=== PATIENT | female | born 1965 | race Caucasian/White ===

== ENCOUNTER 2016-06-01 06:18 | Inpatient (IN) ==
[2016-06-01] MEDS ORDERED: ASPIRIN PO STA (06:31)
[2016-06-01] MEDS ORDERED: NITROGLYCERIN SL PRN (06:31)
--- NOTE | 2016-06-01 06:54 | PROVIDER DOCUMENTATION ---
HPI-Respiratory General - General Chief Complaint: Shortness of Breath Stated Complaint: SOB Time Seen by Provider: 06/01/16 06:22 Source: patient, family Allergies/Adverse Reactions: Patient Allergies Allergy/AdvReac Type Severity Reaction Status Date / Time Penicillins Allergy ANAPHYLAXIS Verified 06/01/16 06:31 Home Medications: No Home Medications 06/01/16 - History of Present Illness-Resp Nature of Presenting Problem: 50 y/o WF with no significant PMHx that presents to ED with a 4 day h/o SOB. Pt states initial evaluation at [place] ED on where she was diagnosed with Pleurisy. Pt reports left sided pain has been sharp, constant, non-radiating with a worsening intensity. SOB is aggravated with deep inspiration with no alleviating factors. Denies any chest pain, but reports a heaviness that began at onset. Denies any other symptoms. Quality of Pain: reports: aching, dull Severity in ED: reports: moderate Onset/Duration: reports: 4 days ago Timing: reports: getting worse Exposure: reports: unknown cause Cough Quality/Degree: reports: no cough Episode Frequency: other (recent diagnosis of pleurisy) Modifying Factors: improves with: nothing Associated Symptoms: reports: shortness of breath, other (left sided chest pain with deep inspiration) Similar Symptoms Previously?: No Recently seen or treated by another doctor?: Yes Review of Systems - Adult - REVIEW OF SYSTEMS - ADULT Constitutional: reports: no symptoms reported Eyes: reports: no symptoms reported Ears, Nose, Mouth & Throat: reports: no symptoms reported Cardiovascular: reports: no symptoms reported Respiratory: reports: shortness of breath. denies: cough, dyspnea on exertion Gastrointestinal: reports: no symptoms reported Genitourinary: reports: no symptoms reported Musculoskeletal: reports: no symptoms reported Integumentary: reports: no symptoms reported Neurological: reports: no symptoms reported Psychiatric: reports: no symptoms reported Endocrine: reports: no symptoms reported Hematologic/Lymphatic: reports: no symptoms reported Allergic/Immunologic: reports: no symptoms reported Past History - Adult - PAST MEDICAL HISTORY-ADULT Review of Records: reports: Old Records Reviewed, Nursing Assessment Review, Medications Reviewed Major Childhood Illnesses: reports: denies history Cardiovascular: reports: denies history Respiratory: reports: denies history Gastrointestinal: reports: denies history Obstetrical/Gynecological: reports: denies history Genitourinary: reports: denies history Musculoskeletal: reports: denies history Neurological: reports: denies history Psychiatric: reports: denies history Endocrine/Immune: reports: denies history - PRIOR SURGERIES/PROCEDURES Surgical/Procedure History: reports: hysterectomy, - IMMUNIZATION STATUS Childhood Immunizations: See Nurse Assessment Flu Vaccine: See Nurse Assessment - FAMILY HISTORY Family History: reviewed, not pertinent - SOCIAL HISTORY Smoking: cigarettes, less than 1 pack/day Substance Use: marijuana Alcohol Use Frequency: 3-4 times a week Number of drinks per typical drinking period:: 3-4 drinks Living Situation: family Physical Exam-General - PHYSICAL EXAM-ADULT Initial Vital Signs Reviewed: Yes - CONSTITUTIONAL General Appearance: appears well, alert, no apparent distress. negative: lethargic, slow to respond - EYES Eyes: PERRL/EOMI, pink conjunctivae. negative: pale conjunctivae, sclera injected, scleral icterus - HEAD, EARS, NOSE, MOUTH & THROAT HENMT: normocephalic/atraumatic, moist mucous membranes. negative: pharyngeal erythema, tonsillar exudate - NECK Neck: non-tender, full range of motion, supple. negative: C-spine tenderness - RESPIRATORY Respiratory: chest non-tender, lungs clear, normal breath sounds, pain on inspiration. negative: crackles, rales, rhonchi, stridor, wheezing, plerual rub - CARDIOVASCULAR Cardiovascular: normal peripheral pulses, regular rate, rhythm, no edema, no murmur. negative: extra beats, friction rub, irregularly irregular - CHEST (BREASTS) Chest/Breast: no tenderness. negative: mass/lump noted - GASTROINTESTINAL (ABDOMEN) Abdominal Exam: normal bowel sounds, non tender, soft. negative: guarding, rigid, rebound, tenderness - GENITOURINARY Female Genitalia/Pelvic Exam: deferred Rectal Exam: deferred - LYMPHATIC Lymphatic: no adenopathy - MUSCULOSKELETAL Back Exam: no CVA tenderness, no vertebral tenderness. negative: muscle spasm, swelling, vertebral tenderness Extremity: normal range of motion, non-tender, normal gait. negative: deformity , erythema - SKIN Integumentary: normal color, normal turgor, warm/dry. 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 negative: anxious, tearful Progress - PLAN OF CARE/RESULTS Progress/Plan/Lab Results: Laboratory Tests 06/01/16 06/01/16 06/01/16 06:43 06:43 06:43 WBC 12.02 H RBC 4.18 L Hgb 13.6 Hct 39.0 MCV 93.3 MCH 32.5 H MCHC 34.9 RDW Std Deviation 12.5 Plt Count 263 MPV 9.8 Immature Gran % (Auto) 0.2 Neut % (Auto) 82.9 H Lymph % (Auto) 9.7 L [place] % (Auto) 6.6 Eos % (Auto) 0.5 Baso % (Auto) 0.1 Immature Gran # (Auto) 0.03 Neut # 9.97 H Lymph # 1.16 L [place] # 0.79 H Eos # 0.06 Baso # 0.01 PT INR PTT (Actin FS) D-Dimer 1.02 H Sodium 137 Potassium 4.1 Chloride 101 Carbon Dioxide 22 L Anion Gap 14 BUN 10 Creatinine 0.6 Estimated GFR/1.73 m2 > 60 BUN/Creatinine Ratio 17 Glucose 108 H Calculated Osmolality 273 Calcium 9.2 Magnesium 2.0 Total Bilirubin 0.49 AST 11 ALT 9 L Alkaline Phosphatase 79 Creatine Kinase 32 Troponin T Gcm-R-Pzltkjfthhn Pept Total Protein 6.8 Albumin 3.7 Globulin 3.1 Albumin/Globulin Ratio 1.2 06/01/16 06/01/16 06/01/16 06:43 06:43 06:43 WBC RBC Hgb Hct MCV MCH MCHC RDW Std Deviation Plt Count MPV Immature Gran % (Auto) Neut % (Auto) Lymph % (Auto) [place] % (Auto) Eos % (Auto) Baso % (Auto) Immature Gran # (Auto) Neut # Lymph # [place] # Eos # Baso # PT 10.2 INR 0.96 PTT (Actin FS) 29.7 D-Dimer Sodium Potassium Chloride Carbon Dioxide Anion Gap BUN Creatinine Estimated GFR/1.73 m2 BUN/Creatinine Ratio Glucose Calculated Osmolality Calcium Magnesium Total Bilirubin AST ALT Alkaline Phosphatase Creatine Kinase Troponin T < 0.010 Nhm-O-Rgyiolurwuo Pept 316 H Total Protein Albumin Globulin Albumin/Globulin Ratio Orders Category Date Time Status Cardiac Monitoring DIRECTED Care 06/01/16 06:32 Active Saline Loc NOW Care 06/01/16 06:32 Active CHEST-2 VIEWS [RAD] Stat Exams 06/01/16 06:32 Draft CBC WITH ELECTRONIC DIFF [HEME] Stat Lab 06/01/16 06:43 Completed CK PROFILE [SP CHEM] Stat Lab 06/01/16 06:43 Completed COMPREHENSIVE METABOLIC PANEL [CHEM] Stat Lab 06/01/16 06:43 Completed D-DIMER [CHEM] Stat Lab 06/01/16 06:43 Completed MAGNESIUM [CHEM] Stat Lab 06/01/16 06:43 Completed PRO B-NATRIURETIC PEPTIDE Stat Lab 06/01/16 06:43 Completed PROTIME WITH INR [COAG] Stat Lab 06/01/16 06:43 Completed PTT [COAG] Stat Lab 06/01/16 06:43 Completed TROPONIN T Stat Lab 06/01/16 06:43 Completed Aspirin Med 06/01/16 06:31 Discontinued 325 mg PO STAT STA Ketorolac [Toradol] Med 06/01/16 06:58 Discontinued 30 mg IV NOW ONE Nitroglycerin Sl [Nitroglycerin] Med 06/01/16 06:31 Active 0.4 mg SL Q5M PRN PRN EKG [EKG] Stat Ther 06/01/16 06:32 Draft Vital Signs - 24 hr 06/01/16 06:23 Temperature 97.8 F Pulse Rate 75 Respiratory 19 Rate Blood Pressure 151/80 O2 Sat by Pulse 97 Oximetry - EKG 1 Time of EKG reading by physician:: 06:51 EKG Read and Signed by:: Monserrat Aldrich Jr EKG Interpretation (*Must complete 3 of following elements*): Normal Rate: 67 Rhythm: sinus [place]: normal QRS: normal [place] Interval: normal ST Wave: normal - XRAY 1 XRAY Study: Chest Impression: Abnormal XRAY Interpretation: LLL inflitrate suggestive of pneumonia - CT/MRI 1 CT Study: Angiogram Impression: Abnormal (Left sided PE with possible pulmonary infarct of the lingula and Left Lower Lobe at the base. Bibasilar atelectasis. Noncalcified granuloma.) - CONSULTS/PCP/HOSPITALIST Notification #1 *Consult/PCP/Hospitalist*: Dr. Rosa Time Discussed: 09:45 Consult Disposition: Will see in ED, Admit Departure - Departure Time of Disposition Order: 09:44 DIAGNOSIS: Bandemia, Pulmonary embolism and infarction Pneumonia Qualifiers: Pneumonia type: due to unspecified organism Laterality: left Lung location: lower lobe of lung Qualified Code(s): J18.1 - Lobar pneumonia, unspecified organism Dyspnea Qualifiers: Dyspnea type: shortness of breath Qualified Code(s): R06.02 - Shortness of breath Disposition: ADMITTED INPATIENT 09 Certified Medical Emergency: Emergent Condition: Fair Referrals: None,PCP [Primary Care Provider] -
[2016-06-01] MEDS ORDERED: TORADOL IV ONE (06:58)
[2016-06-01 07:05] LABS: MANUAL DIFF NEEDED? NO
[2016-06-01 07:07] LABS: BASO% 0.1 % (0.0-0.8); EOS# 0.06 X1000 (0.0-0.7); EOS% 0.5 % (0.0-10.0); HEMOGLOBIN 13.6 g/dL (12.0-16.0); IMM GRAN# 0.03 X1000 (0.0-0.04); IMM GRAN% 0.2 % (0.0-0.5); LYMPH# 1.16 X1000 (1.2-3.4); LYMPH% 9.7 % (20.5-51.1); MCH 32.5 PG (27-31); MCHC 34.9 g/dL (33-37); MCV 93.3 FL (81-99); MONO# 0.79 X1000 (0.11-0.59); MONO% 6.6 % (1.7-9.3); MPV 9.8 FL (7.4-10.4); NEUT% 82.9 % (42.2-75.2); PLT 263 X1000 (130-400); RBC 4.18 XMIL (4.2-5.4)
[2016-06-01 07:20] LABS: INR 0.96; PROTIME 10.2 Seconds (9.2-11.7); PTT 29.7 Seconds (22.0-36.0)
[2016-06-01 07:26] LABS: AGAP 14; ALBUMIN 3.7 g/dL (3.5-5.0); ALKALINE PHOSPHATASE 79 U/L (32-104); BUN 10 mg/dL (8-22); CALCIUM 9.2 mg/dL (8.8-10.2); CHLORIDE 101 mmol/L (98-107); CK PROFILE 32 U/L (24-173); COSMO 273; GOT 11 U/L (10-30); GPT 9 U/L (10-36); POTASSIUM 4.1 mmol/L (3.5-5.1); SODIUM 137 mmol/L (136-145); TCO2 22 mmol/L (25-35); TOTAL BILIRUBIN 0.49 mg/dL (0.20-1.00); TOTAL PROTEIN 6.8 g/dL (6.3-8.3)
--- NOTE | 2016-06-01 07:28 | EKG Report ---
Test Performed on : 06/01/2016 06:51:21 AM Test Reason : Chest Pain Blood Pressure : / mmHG Vent. Rate : 067 BPM Atrial Rate : 067 BPM P-R Int : 130 ms QRS Dur : 088 ms QT Int : 370 ms P-R-T Axes : 039 055 028 degrees QTc Int : 390 ms Normal sinus rhythm. Normal ECG No previous ECGs available Unconfirmed Result
--- NOTE | 2016-06-01 07:35 | Diag Imaging Result Document ---
PROCEDURE NAME: CHEST-2 VIEWS - 06/01/2016 CHEST X-RAY, 2 VIEWS: COMPARISON: None. FINDINGS: There is significant left lower lobe infiltrate. There is also some infiltrate or atelectasis in the right lateral costophrenic angle. Heart size is normal. No pneumothorax or pleural effusion. IMPRESSION: Substantial left lower lobe infiltrate suggesting pneumonia.
[2016-06-01] MEDS ORDERED: LEVAQUIN 750 MG/D5W 150 ML IV ONE (07:42)
[2016-06-01] MEDS ORDERED: HEPARIN IV ONE (09:06)
--- NOTE | 2016-06-01 09:20 | Diag Imaging Result Document ---
PROCEDURE NAME: ANGIOGRAM/PULMONARY ARTERIES - 06/01/2016 CTA CHEST: COMPARISON: None available. FINDINGS: There is a prominent filling defect seen in 2nd and higher order branches of the left pulmonary artery that lead to the lingula and the left lower lobe. This is consistent with pulmonary embolism. There is dense consolidation in the lingula and at the peripheral left lung base. This is worrisome for pulmonary infarct. There is also subsegmental atelectasis at the left lung base and a small pleural fluid collection. I suppose concurrent pneumonia is possible. There is minimal subsegmental atelectasis at the right lung base as well. No other pulmonary emboli can be identified. There is no evidence of aortic dissection or aneurysm. There are few calcified mediastinal lymph nodes suggesting prior granulomatous disease. There is a 6.4 mm noncalcified nodule at the superior aspect of the right lower lobe posteriorly abutting the pleura. This certainly may represent a noncalcified granuloma. A few other tiny pleural-based nodules are identified at the upper lung zones. If there is clinical concern for this, a followup CT based on Fleischner Society criteria may be helpful. IMPRESSION: 1. Left side pulmonary embolism with findings concerning for pulmonary infarct involving the lingula as well as the left lower lobe at the base. 2. Bibasilar atelectasis. 3. A few small pulmonary nodules that are not calcified as described, statistically most likely representing noncalcified granulomata. If clinically warranted, followup based on Fleischner Society criteria. 4. This critical result was reported to Dr. Aldrich in the Emergency Department via telephone at 0856 hours.
[2016-06-01] MEDS ORDERED: LOVENOX SUBQ ONE (09:59)
[2016-06-01] MEDS ORDERED: LOVENOX ONE (10:16)
[2016-06-01] MEDS ORDERED: TYLENOL PO PRN (11:38)
[2016-06-01] MEDS ORDERED: ZOFRAN IV PRN (11:38)
--- NOTE | 2016-06-01 11:38 | HISTORY AND PHYSICAL ---
PRIMARY CARE PROVIDER: No one. CHIEF COMPLAINT: Shortness of breath. HISTORY OF PRESENT ILLNESS: Ms. Muriel Sepulveda is a 50-year-old female with no significant past medical history who, apparently, on Tuesday morning, , 05/29/2016, started having symptoms of shortness of breath. It progressed to later on that evening as pain in her left breast and left chest area. She presented to [place] that evening and was diagnosed with pleurisy after a chest x-ray was performed. She was sent home with naproxen and Tylenol 3. Over the last 2 days, she states that she did take the medication but it just did not improve her symptoms. Her symptoms included progressive chest tightness that felt like a flu or a cold and the pain continued in her left breast and left chest. Shortness of breath with pain was worse with inspiration. She had increasing fatigue and then yesterday started having some dizziness, nausea, diaphoresis, flushed hot feeling but did not pass out. This morning she got up, got ready for work and felt so bad that she came here for medical assistance. She does have clear phlegm that is blood tinged in color, which she stated also started yesterday. She denies vomiting or diarrhea, denies fever or chills, denies blood in her urine or stool. Workup revealed chest x-ray that showed a substantial left lower lobe infiltrate that was suggestive of pneumonia. Her white blood cell count was 12,000. She was afebrile. D-dimer was elevated at 1 and they performed a pulmonary arteriogram, which showed a left-sided pulmonary embolism with findings concerning for pulmonary infarct involving the lingula as well as the left lower lobe at the base. She had bilateral bibasilar atelectasis, a few small pulmonary nodules. In the ER received Toradol 30 mg IV x1 for pain, Levaquin 750 for possible pneumonia, heparin 5000 units IV x1, and aspirin 325 mg p.o. x1. We will admit her to CICU and start her on weight based 1 mg/kg of Lovenox twice daily and perform a hypercoagulable workup as she states that her mother had a clotting disorder but was not confirmed with the diagnosis. PAST MEDICAL HISTORY: None. PAST SURGICAL HISTORY: section x2. Partial hysterectomy and tubal ligation. SOCIAL HISTORY: Half pack per day smoker. Six beers every 2 weeks. Marijuana, last being on [employer] 's [place]idya, the same day as her symptoms. She and her smoke about once a week. 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 She is . Apparently, her recently had an acute MN and is currently wearing a Life Vest and he is at the bedside with her. She has children and grandchildren. FAMILY HISTORY: Mother had coronary artery disease, blood disease that caused clots, she states that these clots were in her legs, and diabetes. REVIEW OF SYSTEMS: Fourteen point review of systems were complete and all were negative except for those mentioned in the above HPI. ALLERGIES: Penicillin. HOME MEDICATIONS: None. LABORATORY DATA: White blood cells 12,000. Hemoglobin 13. Hematocrit 39. Platelet count 263,000. PT 10. INR 0.96. PTT 29.7. D-dimer 1.02. Sodium 137. Potassium 4.1. BUN 10. Creatinine 0.6. GFR greater than 60. Glucose 108. Calcium 9.2. Magnesium 2.0. Total bilirubin 0.49. AST 11. ALT 9. CK 32. Troponins less than 0.01. ProBNP 316. Total protein 6.8. Lactate 0.8. IMAGIN. Chest x-ray: Substantial left lower lobe infiltrate suggesting pneumonia. Heart size is normal. No pneumothorax or pleural effusion. There is also some atelectasis or infiltrate in the right lateral costophrenic angle. 2. Pulmonary arteriogram revealed left-sided pulmonary embolism with findings concerning for pulmonary infarct involving the lingula as well as the left lower lobe at the base, bibasilar atelectasis, and a few small pulmonary nodules that are noncalcified, likely representing noncalcified granulomata. 3. EKG normal sinus rhythm. Rate is 67. PHYSICAL EXAMINATION: VITAL SIGNS: Temperature is 97.8 degrees. Heart rate 78. Respiratory rate 16. Blood pressure 131/77. O2 saturation 96% on nasal cannula. She is 5 feet 2 inches tall, 140 pounds. BMI is 25.6. GENERAL: Ms. Sepulveda is a pleasant 50-year-old female. She is in no acute distress. There is some mild discomfort with talking and carrying on conversation and some mild shortness of breath with that. HEENT: Atraumatic, normocephalic. Pupils equal, round, reactive to light. Extraocular movements are intact. NECK: No carotid bruits or JVD noted. CARDIOVASCULAR: S1, S2. Regular rate and rhythm. No rubs, gallops or murmurs. PULMONARY: Clear to auscultate with bilateral breath sounds, decreased in the left base. No accessory muscle use with just trace work of breathing, currently on 2 L nasal cannula. GI: Soft, nontender, nondistended. Positive bowel sounds x4. NEUROLOGIC: A and O x4. Moves all extremities equally. EXTREMITIES: No edema noted. +2 dorsalis and radial pulses. No swelling in the lower extremities or redness noted. No signs of DVT at this time. SKIN: Warm, dry, intact. ASSESSMENT AND PLAN: 1. Pulmonary thromboemboli of the left lower lobe with findings concerning for pulmonary infarct involving the lingula as well as the left lower lobe and the base. Lactic acid is normal at this time. Will do Lovenox 1 mg/kg q.12 hours. She gives a family history of her mother having clotting disorder so will do a hypercoagulable workup. She has never had a history of clots. We will repeat a chest x-ray in the morning. Will order lower extremity Dopplers and an echo to evaluate for other clots. 2. Questionable left lower lobe pneumonia versus atelectasis. Could be that the chest x-ray is showing more of the clot causing the infiltrates on the left lower lobe. Her white count is 12,000 but this could be inflammatory. We will go ahead and continue with Levaquin for now. She does have a history of smoking. 3. Left pleuritic pain. [place] p.r.n. Tylenol p.r.n. Will add low-dose Dilaudid. She did receive Toradol in the ER. May consider adding a couple of schedule doses. 4. Tobacco abuse. Cessation was discussed. Will not use a nicotine patch for nicotine withdrawal given high risk of clots with nicotine patches. 5. Gastrointestinal prophylaxis. Proton pump inhibitor. 6. Deep venous thrombosis prophylaxis. She will be receiving weight-based dosing of Lovenox. Dictated by ALBERTA Douglas for Clark Rosa MD
[2016-06-01] MEDS: DUONEB (A & A) INH PRN (12:30)
[2016-06-01] MEDS ORDERED: TORADOL IV SCH (13:00)
[2016-06-01] MEDS: NS 1,000 ML IV SCH (15:03)
[2016-06-01 18:31] LABS: URINE CULTURE NEEDED? NO; URINE MICRO REVIEW NEEDED? NO; URINE SOURCE CLEAN CATCH
[2016-06-01 18:44] LABS: BILIRUBIN URINE NEGATIVE (NEGATIVE); BLOOD URINE TRACE (NEGATIVE); COLOR YELLOW; GLUCOSE URINE NEGATIVE (NEGATIVE); LEUKOCYTES URINE NEGATIVE (NEGATIVE); NITRITE URINE NEGATIVE (NEGATIVE); PROTEIN URINE TRACE mg/dL (NEGATIVE); TURBIDITY URINE CLEAR (CLEAR); UROBILINOGEN URINE NORMAL (NORMAL)
[2016-06-01 18:46] LABS: UR EPITHELIAL CELLS <10 /HPF (<10); URINE BACTERIA NEGATIVE /HPF; URINE RBC <10 /HPF (<10); URINE WBC <10 /HPF (<10)
[2016-06-01 18:50] LABS: SP GRAVITY URINE > 1.030
[2016-06-01] MEDS: PRILOSEC PO SCH (19:35)
[2016-06-01] MEDS: LOVENOX SUBQ SCH (20:53)
[2016-06-01] MEDS: NORCO-7.5 PO PRN (20:57)
[2016-06-01] MEDS ORDERED: LOVENOX 1 MG/KG SUBQ SCH (22:00)
[2016-06-02] MEDS: NS 1,000 ML IV SCH ×3 (04:08→20:19)
[2016-06-02 04:45] LABS: MANUAL DIFF NEEDED? NO
[2016-06-02 04:49] LABS: BASO% 0.1 % (0.0-0.8); EOS% 2.3 % (0.0-10.0); HEMATOCRIT 35.2 % (37.0-47.0); HEMOGLOBIN 12.1 g/dL (12.0-16.0); LYMPH# 2.43 X1000 (1.2-3.4); LYMPH% 27.6 % (20.5-51.1); MCH 32.6 PG (27-31); MCHC 34.4 g/dL (33-37); MCV 94.9 FL (81-99); MPV 9.7 FL (7.4-10.4); PLT 257 X1000 (130-400); RBC 3.71 XMIL (4.2-5.4)
[2016-06-02] MEDS: NORCO-7.5 PO PRN (05:05)
[2016-06-02 05:13] LABS: AGAP 12; ALBUMIN 3.2 g/dL (3.5-5.0); ALKALINE PHOSPHATASE 80 U/L (32-104); BUN 9 mg/dL (8-22); CALCIUM 8.8 mg/dL (8.8-10.2); CHLORIDE 103 mmol/L (98-107); COSMO 273; GOT 15 U/L (10-30); GPT 11 U/L (10-36); INR 1.01; IRON SATURATION 13 %; POTASSIUM 4.1 mmol/L (3.5-5.1); PROTIME 10.7 Seconds (9.2-11.7); PTT 33.6 Seconds (22.0-36.0); SODIUM 138 mmol/L (136-145); TCO2 23 mmol/L (25-35); TIBC 206 ug/dL; TOTAL BILIRUBIN 0.57 mg/dL (0.20-1.00); TOTAL IRON 26 ug/dL (49-151); UNBOUND IRON 180 ug/dL (112-346)
[2016-06-02 05:29] LABS: FREE T4 1.32 ng/dL (0.93-1.70)
[2016-06-02 06:15] LABS: HEMOGLOBIN A1C 5.3 % (4.8-6.0)
[2016-06-02] MEDS: DILAUDID IV PRN ×5 (06:25→23:52)
[2016-06-02] MEDS ORDERED: VANCOMYCIN 1 GM/NS 250 ML IV ONE (06:37)
--- NOTE | 2016-06-02 07:11 | EKG Report ---
Test Performed on : 06/02/2016 06:23:01 AM Test Reason : chest pain Blood Pressure : / mmHG Vent. Rate : 058 BPM Atrial Rate : 058 BPM P-R Int : 150 ms QRS Dur : 086 ms QT Int : 404 ms P-R-T Axes : 061 054 039 degrees QTc Int : 396 ms Sinus bradycardia. Otherwise normal ECG When compared with ECG of 01-JUN-2016 06:51, Nonspecific ST abnormality improved in III Confirmed by Jasiel Rivero DO ([id number]) on 06/02/2016 6:50:09 PM
--- NOTE | 2016-06-02 08:04 | Diag Imaging Result Document ---
PROCEDURE NAME: CHEST-PORTABLE - 06/02/2016 SINGLE FRONTAL RADIOGRAPH OF THE CHEST: COMPARISON: 06/01/2016. FINDINGS: Inspiration is suboptimal. Infiltrate at the left lung base is approximately stable as compared to the previous study given differences in inspiration. Right costophrenic angle opacity is slightly more prominent. There are probably tiny bilateral effusions. No other new consolidation is identified. Cardiac silhouette is stable. IMPRESSION: Slight increase in the focal opacity at the right costophrenic angle but approximate stability of the infiltrate at the left lung base given differences in inspiration.
[2016-06-02] MEDS: DUONEB (A & A) INH PRN ×3 (08:28→15:45)
[2016-06-02] MEDS: LOVENOX SUBQ SCH ×2 (10:09→20:14)
[2016-06-02] MEDS: LEVAQUIN 750 MG/D5W 150 ML IV SCH (10:09)
[2016-06-02] MEDS: PRILOSEC PO SCH ×2 (10:09→18:12)
--- NOTE | 2016-06-02 13:20 | PROGRESS NOTE ---
DATE: 06/02/2016 SUBJECTIVE: This patient states that she is feeling better. She is still complaining of mild to moderate left chest pain. She denies nausea, vomiting, diarrhea, constipation. No fever, no chills. She states that the shortness of breath is getting better. She is on fluids, and she is on a diet. If she tolerates p.o. I will stop the fluids. OBJECTIVE: Vital Signs: Temperature 97.7 degrees, pulse 73, respiratory rate 20, blood pressure 132/73, O2 saturation 97 on home 2 L of nasal cannula. HEENT: Head normocephalic. No trauma. PERRLA. Neck: Supple. No JVD. No masses. Cardiovascular: RRR. No murmurs. No gallops. No rubs. Chest: Clear to auscultation. Left lower lung rales. Abdomen: Soft, nontender, nondistended. No hepatosplenomegaly. Extremities: No edema. No clubbing. No cyanosis. Neurological: The patient is alert and oriented x3. No focal neurological deficits. LABORATORY: WBC 8.7, hemoglobin 12.1, hematocrit 35.2, platelets 257,000. Sodium 138, potassium 4.1, chloride 103, bicarbonate 23, BUN 9, creatinine 0.8, glucose 82. Hemoglobin A1c is 5.3. Albumin 3.2. Vitamin B12 146 which is low. ASSESSMENT AND PLAN: 1. Pulmonary thromboemboli of the left lower lung with findings concerning for pulmonary infarct involving the lingula as well. This patient is feeling much better. She is on Lovenox 1 mg/kg q.12 hours. We will continue with the same medication. Apparently her mom also had a venous thromboembolism. She never had history of blood clots. Pending echocardiogram and a lower extremity ultrasound to rule out another clot. 2. Possible left lower pneumonia versus atelectasis. I will continue with the same medications. She is on levofloxacin. 3. Left pleuritic pain. Continue with pain medication, she is getting better. 4. Tobacco abuse. I will continue counseling this patient against smoking, and she seems to understand the risk of having new blood clots and cardiovascular events secondary to cigarette smoking. CRITICAL CARE TIME: 35 minutes.
--- NOTE | 2016-06-02 14:02 | ECHO REPORT ---
ORDER DATE: 06/02/2016 PROCEDURE: Echocardiogram. ECHOCARDIOGRAPHIC MEASUREMENTS: 1. Interventricular septum 0.8. 2. Left ventricular posterior wall 0.8. 3. Diastolic diameter 4.1. 4. Left atrium 4.2. 5. Aorta 3. INTERPRETATION: 1. Normal left ventricular cavity size. Estimated ejection fraction of 60% to 65%. 2. Aortic valve leaflets are trileaflet. 3. Mitral valve was normal. 4. Tricuspid valve was normal. 5. Pulmonic valve was normal. 6. Peak velocity across the aortic valve less than 2 m/sec. There is no aortic stenosis or regurgitation. 7. There is trivial mitral regurgitation. 8. Trace tricuspid regurgitation. Peak velocity across the tricuspid valve was 2.3 m/sec. 9. There is no pericardial effusion or obvious intracardiac mass.
[2016-06-02] MEDS ORDERED: MORPHINE IV ONE (17:45)
[2016-06-03] MEDS: DILAUDID IV PRN ×6 (03:19→19:27)
[2016-06-03] MEDS: NS 1,000 ML IV SCH ×4 (03:26→23:36)
[2016-06-03 04:56] LABS: MANUAL DIFF NEEDED? NO
[2016-06-03 05:01] LABS: BASO% 0.1 % (0.0-0.8); EOS# 0.25 X1000 (0.0-0.7); EOS% 2.9 % (0.0-10.0); HEMATOCRIT 32.7 % (37.0-47.0); IMM GRAN# 0.02 X1000 (0.0-0.04); IMM GRAN% 0.2 % (0.0-0.5); LYMPH# 1.96 X1000 (1.2-3.4); LYMPH% 22.5 % (20.5-51.1); MCH 32.2 PG (27-31); MCHC 33.6 g/dL (33-37); MCV 95.6 FL (81-99); MONO% 10.3 % (1.7-9.3); MPV 9.8 FL (7.4-10.4); PLT 264 X1000 (130-400); RBC 3.42 XMIL (4.2-5.4)
[2016-06-03 05:19] LABS: AGAP 10; BUN 7 mg/dL (8-22); CALCIUM 8.3 mg/dL (8.8-10.2); CHLORIDE 99 mmol/L (98-107); COSMO 265; POTASSIUM 4.4 mmol/L (3.5-5.1); SODIUM 134 mmol/L (136-145); TCO2 25 mmol/L (25-35)
--- NOTE | 2016-06-03 05:25 | EKG Report ---
Test Performed on : 06/02/2016 6:11:32 PM Test Reason : chest pain Blood Pressure : / mmHG Vent. Rate : 084 BPM Atrial Rate : 084 BPM P-R Int : 134 ms QRS Dur : 070 ms QT Int : 354 ms P-R-T Axes : 058 055 043 degrees QTc Int : 418 ms Normal sinus rhythm. Normal ECG When compared with ECG of 02-JUN-2016 06:23, (Unconfirmed) Nonspecific T wave abnormality III Nonspecific T wave abnormality aVL Nonspecific ST and T wave abnormality V1 No significant change was found Confirmed by Jasiel Rivero DO ([id number]) on 06/06/2016 3:38:03 PM
[2016-06-03] MEDS: PRILOSEC PO SCH ×2 (06:29→18:32)
[2016-06-03] MEDS: DUONEB (A & A) INH PRN ×3 (07:31→15:20)
[2016-06-03] MEDS: LEVAQUIN 750 MG/D5W 150 ML IV SCH ×2 (07:54→08:16)
[2016-06-03] MEDS: LOVENOX SUBQ SCH ×3 (07:55→20:27)
--- NOTE | 2016-06-03 07:56 | EKG Report ---
Test Performed on : 06/03/2016 07:22:58 AM Test Reason : Chest Pain Blood Pressure : / mmHG Vent. Rate : 074 BPM Atrial Rate : 074 BPM P-R Int : 134 ms QRS Dur : 076 ms QT Int : 362 ms P-R-T Axes : 040 059 041 degrees QTc Int : 401 ms Normal sinus rhythm. Normal ECG When compared with ECG of 02-JUN-2016 18:11, (Unconfirmed) No significant change was found Confirmed by Jasiel Rivero DO ([id number]) on 06/06/2016 3:49:57 PM
--- NOTE | 2016-06-03 09:49 | Diag Imaging Result Document ---
PROCEDURE NAME: CHEST-PORTABLE - 06/03/2016 PORTABLE CHEST X-RAY: COMPARISON: 06/02/2016. FINDINGS: Stable multilobar infiltrates in the left lung base. Stable small infiltrate in the right base as well. Heart size remains top normal. IMPRESSION: No change from prior.
[2016-06-03 10:03] LABS: INR 1.03; PROTIME 10.9 Seconds (9.2-11.7)
--- NOTE | 2016-06-03 10:09 | PROGRESS NOTE ---
DATE: 06/03/2016 SUBJECTIVE: This patient is complaining about left chest pain, radiated to the back, sharp, since yesterday night. EKG and cardiac enzymes are normal. Also this patient is complaining of hemoptysis. This patient is on anticoagulation and we held the morning dose for now and will get a pulmonary department evaluation on this patient to decide whether or not this patient needs to continue on anticoagulation or any procedure. OBJECTIVE: Vital Signs: Temperature 98 degrees, pulse 76, respiratory rate 31, blood pressure 132/75, oxygen saturation 97% on 2 L of nasal cannula. HEENT: Head normocephalic. No trauma. PERRLA. Neck: Supple. No JVD. No masses. Cardiovascular: RRR. No murmurs. No gallops. No rubs. Chest: Clear to auscultation. Left lower lung rales. Abdomen: Soft, nontender, nondistended. No hepatosplenomegaly. Extremities: No edema. No clubbing. No cyanosis. Neurological: The patient is alert and oriented x3. No focal neurological deficits. LABORATORY: WBC 8.7, hemoglobin 11, hematocrit 32.7, platelets 264,000. Sodium 134, potassium 4.4, chloride 99, bicarbonate 25, BUN 7, creatinine 0.7, glucose 85, calcium 8.3. ASSESSMENT AND PLAN: 1. Pulmonary thromboemboli of the left lower lung with findings concerning for pulmonary infarct involving the lingula as well. This patient is in pain. She has been having hemoptysis and she is getting anticoagulation. I will hold the morning therapy for now and get a pulmonary evaluation on this patient. 2. Hemoptysis. As above. 3. Left pleuritic pain. Continue with pain medication. Will monitor. 4. Tobacco abuse. This patient has been highly advised about quitting smoking. CRITICAL CARE TIME: 35 minutes.
--- NOTE | 2016-06-03 14:18 | CONSULTATION ---
DATE OF CONSULTATION: 06/03/2016 PULMONARY CONSULTATION: REFERRING PHYSICIAN: Dr. Roe. CHIEF COMPLAINT: Evaluation for PE, pulmonary infarct, and hemoptysis. HISTORY OF PRESENTING ILLNESS: This is a 50-year-old female, who is an active smoker until recently, with a strong family history of thromboembolic disease with PE in her mom. She said it is because of possible genetic disease, she does not have the specific diagnosis. Presented to the hospital with shortness of breath. CT scan showed PE with pulmonary infarct. Started on anticoagulation with gradual improvement. Venous Doppler ultrasound preliminary result showed no DVT. Echo result is pending. PAST MEDICAL HISTORY: As above, smoker. PAST SURGICAL HISTORY: section. Partial hysterectomy for a cyst. SOCIAL HISTORY: Active smoker until recently. It is interesting that recently she smoked a nicotine replacement, or the so-called electronic cigarettes. She is , living with . Her just had a massive myocardial infarction. FAMILY HISTORY: Mother had DVT and PE. REVIEW OF SYSTEMS: As detailed in history of presenting illness, otherwise, noncontributory. ALLERGIES: Penicillin. MEDICATIONS IN THE HOSPITAL: Were reviewed and they include Lovenox therapeutic dosage, [place], nebulized treatment, Levaquin. PHYSICAL EXAMINATION: Vital Signs: Noted. Head and Neck: Examined. Trachea midline. Chest: Reduced entry at the left. Cardiac: S1, S2. Abdomen: Nontender. Lungs: No pedal edema. Neurological: Awake, alert, communicative. General exam: Slightly in pain home. LABS/INVESTIGATION: Chest CT scan with PE on the left arm, pulmonary infarct. CBC, CMP, ABG noted. Doppler ultrasound official result and echo results are pending. Hypercoagulable workup pending. ASSESSMENT: A 50-year-old female with PE, pulmonary infarction, and hemoptysis. Likely strong family history of hypercoagulable condition. Diagnosis is yet to be determined regarding that. PLAN: Anticoagulation. Hematology evaluation. Continue current support and pain management. Thank you for the courtesy of this consultation.
--- NOTE | 2016-06-03 18:46 | Extremity Venous Study ---
PROCEDURE NAME: Venous U/S Bilateral Legs - 06/01/2016 LOWER EXTREMITY VENOUS DUPLEX STUDY: REFERRING PHYSICIAN: Clark Rosa MD READING PHYSICIAN: Jaspreet Mascorro MD [employer] SUPERVISOR: Hattie Zavala RVT INDICATION: Pulmonary embolus. FINDINGS: The deep and superficial veins of both lower extremities were imaged throughout their course. All are compressible with forward flow. Thrombus is not present. INTERPRETATION: No evidence of deep or superficial venous thrombosis in either lower extremity.
[2016-06-03] MEDS: NORCO-7.5 PO PRN (21:37)
[2016-06-04] MEDS: NORCO-7.5 PO PRN (04:11)
[2016-06-04 05:10] LABS: MANUAL DIFF NEEDED? NO
[2016-06-04] MEDS: NS 1,000 ML IV SCH ×2 (05:23→18:48)
[2016-06-04 05:46] LABS: BASO% 0.1 % (0.0-0.8); EOS# 0.28 X1000 (0.0-0.7); EOS% 3.9 % (0.0-10.0); HEMATOCRIT 31.2 % (37.0-47.0); HEMOGLOBIN 10.7 g/dL (12.0-16.0); LYMPH# 1.71 X1000 (1.2-3.4); LYMPH% 23.8 % (20.5-51.1); MCHC 34.3 g/dL (33-37); MCV 96.3 FL (81-99); MONO# 0.66 X1000 (0.11-0.59); MONO% 9.2 % (1.7-9.3); PLT 284 X1000 (130-400); RBC 3.24 XMIL (4.2-5.4)
[2016-06-04 05:59] LABS: AGAP 11; BUN 6 mg/dL (8-22); CALCIUM 8.4 mg/dL (8.8-10.2); CHLORIDE 103 mmol/L (98-107); COSMO 273; POTASSIUM 3.9 mmol/L (3.5-5.1); SODIUM 138 mmol/L (136-145); TCO2 24 mmol/L (25-35)
[2016-06-04] MEDS: PRILOSEC PO SCH ×3 (06:19→18:48)
[2016-06-04] MEDS: DUONEB (A & A) INH PRN ×3 (07:25→15:53)
[2016-06-04] MEDS: LEVAQUIN 750 MG/D5W 150 ML IV SCH (08:00)
[2016-06-04] MEDS: LOVENOX SUBQ SCH (08:00)
[2016-06-04] MEDS: DILAUDID IV PRN ×4 (09:43→21:03)
--- NOTE | 2016-06-04 10:06 | PROGRESS NOTE ---
DATE: 06/04/2016 SUBJECTIVE: She had a CT scan. To review, a 50-year-old female with no significant past medical history who apparently Tuesday morning of , 05/29, started having symptoms of shortness of breath. Progressed later in the evening the pain in her left breast and left chest area. She presented to [facility] was diagnosed with pleurisy. After a chest x-ray was performed, she was sent home with Naprosyn and Tylenol #3. Over the next 2 days she did take medication but did not improve her symptoms. Symptoms included progressive chest tightness felt like a cold, left chest and shortness of breath. She was admitted with pulmonary thromboemboli left lower lobe. Findings are concerning for pulmonary infarct and questionable left lower lobe pneumonia and left pleuritic pain. History of tobacco use. Today she states she is still in pain and describes it as pleuritic. PHYSICAL EXAMINATION: Vital Signs: Temperature 97.5 degrees, pulse 65, respirations 24 and blood pressure 134/65. HEENT: Pupils are equal, round, and reactive. Lungs: Clear in all lung heck. Cardiovascular: Regular rate without murmur or S3. Abdomen: Soft. Skin: Warm and dry. URINE OUTPUT: Good urine output 1400 mL. LABORATORY DATA: White count 7200, hematocrit 31, platelet count 284,000. Sodium 138, potassium 3.9. chloride 103, bicarbonate 24, BUN 6, creatinine 0.6. ASSESSMENT: Pulmonary thromboemboli. We will continue her current anticoagulation, clinically stable, breathing comfortably. PLAN: The plan is to put her on long-term anticoagulation for a year and we will see when we can transition. Pleuritic pain has lessened. REVIEW OF ORDERS: I do not see any changes at this time. Normal saline at 75 mL an hour. She is on Levaquin 750 mg IV daily and Lovenox 60 mg subcutaneous q.12 hours.
[2016-06-04] MEDS ORDERED: DULCOLAX PR ONE (19:43)
[2016-06-04] MEDS: XARELTO PO SCH (21:03)
[2016-06-05] MEDS: DILAUDID IV PRN ×6 (01:17→22:25)
[2016-06-05] MEDS: NS 1,000 ML IV SCH (05:05)
[2016-06-05] MEDS: PRILOSEC PO SCH ×2 (06:15→18:19)
--- NOTE | 2016-06-05 07:20 | CONSULTATION ---
DATE OF CONSULTATION: 06/04/2016 REASON FOR CONSULTATION: Acute pulmonary embolism. REQUESTING PHYSICIAN: Dr. Valente Horvath. HISTORY OF PRESENT ILLNESS: Ms. Sepulveda is a 50-year-old, female, who recently presented with shortness of breath to [facility] on [address]. She was diagnosed with pleurisy and then sent home. The patient continued to have symptoms of shortness of breath and pleuritic chest pain and then returned to [facility] ER. At that time, she was found to have a left pulmonary embolism with pulmonary infarction. She was also believed to have pneumonia. She was admitted to the hospital for further evaluation and treatment. She was initially started on heparin and then transitioned to therapeutic Lovenox. The patient reported from the beginning that her mother had a history of blood clots. At this time, the patient is in the CICU stable with no new complaints. PAST MEDICAL HISTORY: None. PAST SURGICAL HISTORY: section x2. Partial hysterectomy and tubal ligation. SOCIAL HISTORY: The patient smokes about 1/2 pack of cigarettes per day times the last 30 years. She drinks about 3 beers per week, and she also smokes marijuana weekly. 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 FAMILY HISTORY: The patient does report that her mother had some sort of clotting disorder and had multiple DVTs. REVIEW OF SYSTEMS: As per HPI. All else negative and noncontributory. PHYSICAL EXAMINATION: VITAL SIGNS: Temperature 97.5 degrees, heart rate 65, respirations 24, blood pressure 134/65, O2 saturation 98% on 2 L nasal cannula. GENERAL: female lying in the hospital bed in no acute distress. at bedside. HEAD: Normocephalic, atraumatic. EYES: A Pupils equal, round, reactive to light. EARS, NOSE, THROAT, NECK AND MOUTH: Oral mucosa appears to be normal. Gross auditory acuity is intact. Trachea appears to be midline. CARDIOVASCULAR: S1-S2 heard without murmurs, gallops, rubs appreciated. Regular rate and rhythm. RESPIRATORY: Essentially clear to auscultation bilaterally anteriorly. GASTROINTESTINAL: Abdomen is soft and nondistended. Positive bowel sounds. MUSCULOSKELETAL: No obvious bony abnormalities noted. EXTREMITIES: Bilateral lower extremities are without edema. NEUROLOGIC: The patient is alert and oriented x3 with no focal motor deficits noted. IMAGING: CT angiogram shows left-sided pulmonary embolism with findings concerning for pulmonary infarct involving the lingula as well as the left lower lobe at the base. Bibasilar atelectasis. A few small pulmonary nodules that are not calcified. Extremity venous Doppler shows no evidence of DVT in bilateral lower extremities. Echocardiogram shows an ejection fraction of 60%-65%. LABORATORY DATA: White blood cells 7.20. Hemoglobin 10.7, hematocrit 31.2, platelets 284,000. Sodium 138, potassium 3.9, chloride 103, CO2 of 24. BUN 6, creatinine 0.6, glucose 92. is 10. Phospholipid is less than 4. Homocystine is normal. Prothrombin mutation is negative. Factor VIII is normal. Protein C and S are normal. Antithrombin is normal and Factor V is negative. Vitamin B 12 of 146. ASSESSMENT AND PLAN: 1. Acute left pulmonary thromboembolism. The patient also has pulmonary infarction. She is currently on therapeutic Lovenox at 1 mg/kg q.12 hours. We will transition the patient to Xarelto 15 mg twice a day for the next 21 days. After that time, she will transition to 20 mg daily. The patient will start Xarelto 15 mg this evening instead of receiving the Lovenox. She will continue to be monitored, and we will see her once she is discharged from the hospital. 2. Pneumonia. The patient is currently on IV Levaquin. Continue. Dr. Horvath is also on board. Continue per his recommendations. 3. Pain. The patient currently has [place] as needed. Continue. 4. Pulmonary infarction. As per Dr. Horvath. We will continue to follow along while Ms. Sepulveda is in the hospital and adjust our treatment plan per hospital course. Dictated by NOLVIA Oshea for Blanca Loaiza MD
[2016-06-05] MEDS: XARELTO PO SCH ×2 (08:45→17:48)
[2016-06-05] MEDS: LEVAQUIN 750 MG/D5W 150 ML IV SCH (08:45)
[2016-06-05] MEDS: DUONEB (A & A) INH PRN (10:28)
--- NOTE | 2016-06-05 11:12 | PROGRESS NOTE ---
DATE: 06/05/2016 SUBJECTIVE: Ms. Sepulveda does feel better. Still having some left pleuritic pain, but breathing comfortably. She is eating. Got some sleep last night. OBJECTIVE: Temperature 98.8, pulse 68, respirations 19, blood pressure 122/67. Lungs are clear in all lung heck. I do not appreciate a left pleural rub. Her pleuritic pain is in the left lateral lung. She is still getting some pain medicine for that. Cardiovascular: Regular rhythm and rate without murmurs. Abdomen: Soft. Skin: Warm and dry. OUTPUT: Urine output above 600 mL. LABORATORIES: Reviewed from the 6th: Hematocrit is 31, white blood cell count 7200. Chemistries reviewed from the 6th as well and are unremarkable. Creatinine is 0.6. ASSESSMENT AND PLAN: 1. A 50-year-old female. Dr. Loaiza has been consulted with acute left pulmonary thromboembolism, also pulmonary infarction. She is currently on Lovenox 1 mg q.12h. in addition to the patient's Xarelto 15 mg twice a day and for the next 21 days after that she will transition to 20 mg a day. The patient was started o Xarelto yesterday evening instead of receiving the Lovenox. Continue to monitor. 2. Pneumonia. The patient is receiving IV Levaquin. Continue. 3. Pain. Pleuritic pain. [place] as needed. 4. Pulmonary infarction. Dr. Horvath following. No sign of right heart strain and no sign of complicated pulmonary embolism. Shows clinical improvement. Hope to send home on Tuesday.
[2016-06-05] MEDS: NORCO-7.5 PO PRN (12:50)
[2016-06-05] MEDS ORDERED: EUCERIN CREAM TOP PRN (14:20)
[2016-06-05] MEDS ORDERED: SALINE LOCK IV FLUID XX ONE (16:27)
[2016-06-06] MEDS: NORCO-7.5 PO PRN ×3 (03:35→16:34)
[2016-06-06] MEDS: PRILOSEC PO SCH ×2 (06:13→18:18)
[2016-06-06] MEDS: DUONEB (A & A) INH PRN (08:09)
--- NOTE | 2016-06-06 08:12 | PROGRESS NOTE ---
DATE: 06/06/2016 SUBJECTIVE: Ms. Sepulveda is currently feeling better. The pleuritic pain is all but resolved. She is breathing deeper. She ate pretty well yesterday and had a good night's sleep. PHYSICAL EXAMINATION: Vital Signs: Temperature 97.6 degrees, pulse 60, respirations 12, blood pressure 137/75. Lungs: Clear in all lung heck. Cardiovascular Examination: Regular rhythm and rate without murmur or S3. I do not hear a loud P2 closing sound. Abdomen: Soft. Skin: Is warm and dry. Is and Os: Urine output was close to 2 L. ASSESSMENT AND PLAN: 1. Large pulmonary thromboemboli, on Lovenox and have started the Xarelto so the Lovenox was stopped, 50 mg twice a day which we will do for 21 days total and then go to 20 mg a day. I think she is on pace to go home tomorrow. 2. Questionable pneumonia. We are treating with Levaquin. Clinically not coughing up anything. No fever. 3. Pleuritic pain which has resolved. Continue [place] as needed. Hope to send her home tomorrow.
[2016-06-06] MEDS: XARELTO PO SCH ×2 (08:22→16:35)
[2016-06-06] MEDS: LEVAQUIN 750 MG/D5W 150 ML IV SCH (08:22)
--- NOTE | 2016-06-06 10:09 | Diag Imaging Result Document ---
PROCEDURE NAME: CHEST-2 VIEWS - 06/06/2016 PA AND LATERAL RADIOGRAPH OF THE CHEST: COMPARISON: 06/03/2016. FINDINGS: There appears to be a moderate-sized left pleural effusion that is larger than the previous study. There is probably a small right effusion that is stable. There is worsening atelectasis and/or infiltrate at the left lung base. No other new consolidations are identified. Cardiac silhouette is stable. IMPRESSION: Increasing effusion with adjacent atelectasis and/or infiltrate at the left lung base as described.
[2016-06-06] MEDS: DILAUDID IV PRN ×2 (12:39→21:29)
--- NOTE | 2016-06-06 20:12 | DISCHARGE SUMMARY ---
ADMISSION DATE: 06/01/2016 DISCHARGE DATE: 06/07/2016 HOSPITAL COURSE: Ms. Sepulveda is a 50-year-old who came in with shortness of breath on 06/01/2016. No significant past medical history really. Stated that Tuesday morning on [place], 05/29/2016, she started having symptoms of shortness of breath. Progressed later on and developed some pleuritic pain on the left side and she presented to the emergency room where with the D- dimer was elevated and they performed a pulmonary arteriogram which showed left-sided pulmonary embolism, pulmonary infarct involving the lingula as well as left lower lobe at the base. She had bibasilar atelectasis. We treated her empirically as possible pneumonia. She really did not show the symptoms of being toxic, no fever and no sputum production. Pleuritic pain gradually got better. We had her on Lovenox 1 mg/kg twice a day and we started her on Xarelto which she tolerated well. Xarelto was started on at 15 mg p.o. b.i.d. This was started on the 06/04. Pleuritic pain resolved on 06/06/2015 and it was felt she could go home on 06/07/2015. DISCHARGE MEDICATIONS: She will take the Xarelto 15 mg twice a day for another 18 days and she will then switch to 20 mg a day. Probably need anticoagulant for a year, and is to follow up with her primary care doctor. We will send her home with some [place] if she should have some further pleuritic pain. We have her on Prilosec 40 mg b.i.d. which I will switch to 40 mg once a day.
[2016-06-07] MEDS: NORCO-7.5 PO PRN ×3 (01:16→11:15)
[2016-06-07] MEDS: PRILOSEC PO SCH (06:45)
[2016-06-07 07:49] VITALS: BP 115/79
[2016-06-07] MEDS ORDERED: MILK OF MAGNESIA PO ONE (08:04)
[2016-06-07] MEDS: LEVAQUIN 750 MG/D5W 150 ML IV SCH (08:25)
[2016-06-07] MEDS: XARELTO PO SCH (08:25)
== END 2016-06-07 11:40 | disposition home or self-care (01) | DRG 175 ==
LOC: ED 06:18 → EDIPHOLD 10:46 → 3S 06-02 07:38
PROVIDERS: ATTEND Emergency Medicine
DX: I26.99 Other pulmonary embolism without acute cor pulmonale (principal); J18.9 Pneumonia, unspecified organism; R04.2 Hemoptysis; F17.210 Nicotine dependence, cigarettes, uncomplicated; Z82.49 Family history of ischemic heart disease and other diseases of the circulatory system; Z83.3 Family history of diabetes mellitus
CPT/HCPCS: 71010; 71020; 71275; 80048; 80053; 80061; 81001; 81240; 81241; 82550; 82607; 82728; 82746; 83036; 83090; 83540; 83550; 83605; 83721; 83735; 83880; 84439; 84443; 84484; 85025; 85240; 85301; 85302; 85306; 85379; 85610; 85730; 86147; 86850; 86900; 86901; 87040; 87070; 87205; 93005; 93010; 93306; 93970; 94640; 94761; 94799; 96365; 96366; 96368; 96372; 96375; 96376; J1170; J1644; J1650; J1885; J2270; J2405; J3370; J7030; Q9967